=== PATIENT | female | born 1985 | race Caucasian/White ===

== ENCOUNTER 2016-08-22 20:55 | Emergency (ER) | payer MEDICAID ==
[~2016-08-22] VITALS: Ht 160 cm; Wt 49.5 kg
[~2016-08-22 20:55] MED LIST: HYDR-3307 PO; IBUP800T PO; OXYC-302 PO
[2016-08-22 22:50] LABS: BLOOD UREA NITROGEN 12 mg/dL (7-18)
[2016-08-22 22:54] LABS: PATH.CAST-FLAG NOT PRESENT; SPERM-FLAG NOT PRESENT; SRC-FLAG NOT PRESENT; XTAL-FLAG NOT PRESENT; YLC-FLAG NOT PRESENT
[2016-08-22 22:55] LABS: ASPARTATE AMINO TRANSFERASE 17 U/L (15-37)
[2016-08-22] MEDS ORDERED: HYDROmorphone 1 MG/ML, 1ML ONE (23:52)
[2016-08-23] MEDS ORDERED: HYDROmorphone 1 MG/ML, 1ML IM ONE
[2016-08-23 00:44] VITALS: BP 112/78
== END 2016-08-23 00:46 | disposition home or self-care (01) ==
LOC: ED 23:59
DX: S39.012A Strain of muscle, fascia and tendon of lower back, initial encounter (principal); S29.012A Strain of muscle and tendon of back wall of thorax, initial encounter; R31.29 Other microscopic hematuria; F17.200 Nicotine dependence, unspecified, uncomplicated; Z98.51 Tubal ligation status; X58.XXXA Exposure to other specified factors, initial encounter; Y93.89 Activity, other specified; Y92.89 Other specified places as the place of occurrence of the external cause; Y99.9 Unspecified external cause status
CPT/HCPCS: 36415; 74176; 80053; 81001; 83690; 84703; 85025; 96372; 99285; J1170

== ENCOUNTER 2017-05-09 21:00 | Emergency (ER) | payer MEDICAID ==
[~2017-05-09] VITALS: Ht 160 cm; Wt 52.4 kg
[~2017-05-09 21:00] MED LIST changes: +IBUP-1223 PO; -IBUP800T PO
[2017-05-09 23:56] LABS: BASOPHILS # (AUTO) 0.17 x10^3/uL (0-0.1); BASOPHILS % (AUTO) 1 % (0-1); EOSINOPHILS % (AUTO) 3 % (1-7); LYMPHOCYTES # (AUTO) 3.71 x10^3/uL (1-3.4); LYMPHOCYTES % (AUTO) 29 % (22-44); MD NO; MEAN CORPUSCULAR HEMOGLOBIN 30.2 pg (27.0-34.8); MEAN CORPUSCULAR HGB CONC 33.4 g/dL (32.4-35.8); MEAN CORPUSCULAR VOLUME 90.3 fL (80-100); MEAN PLATELET VOLUME 8.3 fL (7.4-10.4); MONOCYTES # (AUTO) 0.59 x10^3/uL (0.2-0.8); MONOCYTES % (AUTO) 5 % (2-9); NEUTROPHILS # (AUTO) 7.76 x10^3/uL (1.8-6.8); NEUTROPHILS % (AUTO) 61 % (42-75); PLATELET COUNT 425 x10^3/uL (130-400); RED BLOOD COUNT 4.06 x10^6/uL (3.82-5.3); RED CELL DISTRIBUTION WIDTH 15.9 % (9.6-15.2)
[2017-05-10 00:04] VITALS: BP 152/104
[2017-05-10 00:08] LABS: ANION GAP 5 mmol/L (5-15); CALCIUM 8.5 mg/dL (8.5-10.1); CHLORIDE 108 mmol/L (98-107); CREATININE 0.73 mg/dL (0.55-1.02)
== END 2017-05-10 01:08 | disposition home or self-care (01) ==
LOC: ED 23:58
DX: K62.5 Hemorrhage of anus and rectum (principal); N80.9 Endometriosis, unspecified
CPT/HCPCS: 36415; 80048; 82040; 85025; 99284